=== PATIENT | female | born 1945 | race Two or more races ===

== ENCOUNTER 2023-08-30 08:45 | Outpatient (CLI) | payer OTHER | END 2023-08-30 09:22 | disposition home or self-care (01) | LOC: MAMO-SONO 08:45 → SONOGRAMA 08:45 → MAMO-SONO 09:22 | PROVIDERS: ATTEND General Practice | DX: Z12.31 Encounter for screening mammogram for malignant neoplasm of breast (principal) ==

== ENCOUNTER 2023-09-25 09:30 | Outpatient (CLI) | payer OTHER | END 2023-09-25 09:38 | disposition home or self-care (01) | LOC: RX STUDY 09:30 | PROVIDERS: ATTEND Urology | DX: N39.46 Mixed incontinence (principal); N81.10 Cystocele, unspecified | CPT/HCPCS: 74455; Q9965 ==